=== PATIENT | female | born 1985 | race African-American/Black ===

== ENCOUNTER 2019-01-02 13:35 | Emergency (ER) | payer SELFPAY ==
[~2019-01-02] VITALS: Ht 162.6 cm; Wt 80.0 kg
[2019-01-02] MEDS ORDERED: IBUPROFEN 600MG TABLET PO ONE (14:45)
[2019-01-02 15:00] LABS: BASOPHILS % 0.2 % (0.0-2.0); EOSINOPHILS % 1.2 % (0.0-5.0); HEMATOCRIT. 38.5 % (36.0-48.0); HEMOGLOBIN. 12.8 g/dL (12.0-16.0); LYMPHOCYTES % 27.3 % (20.0-50.0); MEAN CORPUSCULAR HEMOGLOBIN 30.7 pg (28.0-32.0); MEAN CORPUSCULAR VOLUME 92.4 fL (81.0-99.0); MEAN PLATELET VOLUME 7.9 fl (7.4-10.4); MONOCYTES % 4.5 % (2.0-8.0); NEUTROPHILS % 66.8 % (40.0-76.0); PLATELET 236 x1000/uL (130-400); RED BLOOD CELL COUNT 4.16 mill/uL (4.2-5.4); RED CELL DISTRIBUTION WIDTH 13.5 % (11.6-14.6)
[2019-01-02 15:05] LABS: CHLORIDE 111 mEq/L (98-107)
[2019-01-02 15:11] LABS: CLARITY URINE CLEAR (CLEAR); COLOR URINE YELLOW (YELLOW); KETONES URINE NEGATIVE (NEGATIVE); LEUKOCYTE ESTERASE URINE TRACE (NEGATIVE); NITRITE URINE NEGATIVE (NEGATIVE); OCCULT BLOOD URINE 3+ (NEGATIVE); PROTEIN URINE 1+ (NEGATIVE); SPECIFIC GRAVITY URINE 1.021 (1.005-1.030); UROBILINOGEN URINE 0.2 E.U./dL (0.2-1.0)
[2019-01-02 15:38] LABS: HCG SCREEN NEGATIVE
[2019-01-02 17:27] VITALS: BP 113/55
== END 2019-01-02 17:28 | disposition home or self-care (01) ==
LOC: ER 13:40
DX: R51 Headache (principal); R56.9 Unspecified convulsions
CPT/HCPCS: 36415; 81025; 83735; 84100; 84703; 99283